=== PATIENT | male | born 1965 | race Caucasian/White ===

== ENCOUNTER → 2017-05-27 | Day surgery (SDC) | payer BC ==
[~2017-05-27] MED LIST: ASPIR 8181 MG PO; ATORVASTATIN CA10 MG PO; CEFTIN500 MG PO; CONCERTA54 MG PO; DOK100 MG PO; ENDUR-ACIN500 MG PO; FENTANYL CITRATE/PF 100MCG/2 ML INJ ONE; FLOMAX0.4 MG PO; GLIMEPIRIDE2 MG PO; IOPAMIDOL 370 MG/ML 200 ML INFUS..BTL INJ ONE; LANSOPRAZOLE15 MG PO; LIDOCAINE HCL 2% LOCAL INJ 5 ML SDV VIAL INJ ONE; LISINOPRIL2.5 MG PO; LYRICA75 MG PO; METFORMIN HCL500 MG PO; METOCLOPRAMIDE HCL 10 MG/2ML VIAL ONE; MIDAZOLAM HCL 2 MG/2 ML VIAL ONE; PANTOPRAZOLE SO40 MG PO; PROPOFOL IV EMULSION 10 MG/ML 50 ML VIAL ONE; PROTONIX40 MG/ML PO; ROPINIROLE HC0.25 MG PO; SENNA LAX8.6 MG PO; SODIUM CHLORIDE 0.9% 250ML 250 ML ONE; SODIUM CHLORIDE 0.9% 500ML 500 ML ONE; SODIUM CHLORIDE 0.9% 50ML 50 ML ONE; TRULICITY; TRULICITY SC; TYLENOL # 31 EA PO; ULTRAM 50MG50 MG PO
--- NOTE | 2017-05-27 10:32 | Operative Report ---
DATE OF PROCEDURE: May 27, 2017 REFERRING PHYSICIAN: Dr. Catrachito Ashley PROCEDURE PERFORMED: Esophagogastroduodenoscopy with biopsies. INDICATIONS FOR EGD: Acid reflux. MEDICATION: Patient was done under MAC. Please see anesthesiologist's note. PROCEDURE: With the patient in the left lateral decubitus position, the flexible fiberoptic Olympus gastroscope was introduced into the esophagus under direct visualization without any difficulty. There was some patchy erythema noted in the distal esophagus. The scope was then advanced with ease into the stomach. A large amount of retained undigested food was noted in the stomach precluding visualization of the fundus and the proximal two-thirds of the body. Mucosa overlying the distal body and antrum revealed some diffuse erythema and low-grade edema, and biopsies were obtained and sent to stain for H. pylori. The pylorus was intubated with ease. The scope was advanced all the way to the 2nd portion of the duodenum. The scope was then withdrawn slowly. Mucosa overlying the proximal 2nd portion and the duodenal bulb appeared to be within normal limits. The scope was then withdrawn back into the stomach and retroflexed. The fundus and the proximal two-thirds of the body could not be visualized due to the retained undigested food. The scope was then straightened out. The stomach was decompressed. The scope was subsequently withdrawn. Patient tolerated the procedure well. IMPRESSION 1. Distal esophagitis, mild. 2. Gastritis, antrum, biopsied. Biopsies sent to stain for Helicobacter pylori. 3. Large amount of retained undigested food precluding visualization of fundus and proximal two-thirds of the body of the stomach reflecting gastroparesis. PLAN: Follow up histology. Continue Protonix 40 mg 1 p.o. q.a.m. a.c. Add Reglan 10 mg 1 p.o. a.c. t.i.d. and at bedtime. Job#: [id number] RI cc:CATRACHITO ASHLEY MD
== END | disposition home or self-care (01) ==
LOC: OR 06:45
PROVIDERS: ATTEND Internal Medicine Gastroenterology
DX: K21.9 Gastro-esophageal reflux disease without esophagitis (principal); K29.70 Gastritis, unspecified, without bleeding; K31.84 Gastroparesis; K20.9 Esophagitis, unspecified; G47.33 Obstructive sleep apnea (adult) (pediatric); I10 Essential (primary) hypertension; E11.9 Type 2 diabetes mellitus without complications; Z01.810 Encounter for preprocedural cardiovascular examination
CPT/HCPCS: 36415; 43239; 82948; 93005; J2001; J2250; J2765

== ENCOUNTER 2017-08-17 22:53 | Observation (INO) | payer BC ==
[~2017-08-17] VITALS: Ht 182.9 cm; Wt 113.9 kg
[~2017-08-17 22:53] MED LIST changes: -FENTANYL CITRATE/PF 100MCG/2 ML INJ ONE; -IOPAMIDOL 370 MG/ML 200 ML INFUS..BTL INJ ONE; -LIDOCAINE HCL 2% LOCAL INJ 5 ML SDV VIAL INJ ONE; -METOCLOPRAMIDE HCL 10 MG/2ML VIAL ONE; -MIDAZOLAM HCL 2 MG/2 ML VIAL ONE; -PROPOFOL IV EMULSION 10 MG/ML 50 ML VIAL ONE; -SODIUM CHLORIDE 0.9% 250ML 250 ML ONE; -SODIUM CHLORIDE 0.9% 500ML 500 ML ONE; -SODIUM CHLORIDE 0.9% 50ML 50 ML ONE
[2017-08-18] VITALS (7 sets, daily range): BP systolic 102–131; BP diastolic 59–82
--- OUTSIDE RECORDS SUMMARY | 2017-08-18 00:16 | XMS REPORT ---
Author Author [facility] Address Unknown Phone Unavailable Care Team Providers Care Fine Arts Model Name Role Phone NEMO MOLINA Unavailable Unavailable Problems This patient has no known problems. Allergies, Adverse Reactions, Alerts This patient has no known allergies or adverse reactions. Medications This patient has no known medications. Results Test Description Test Time Test Comments Text Results Atomic Results Result Comments CT ABDOMEN/PELVIS W [place] [address] Patient Name: KRYSTEN VELIZ MR #: [id number] : 1965 Age/Sex: 51/M Req #: [id number] Adm Physician: Ordered by: NEMO MOLINA MD Report #: [id number] Location: CT Room/Bed: Procedure: [id number] CT/CT ABDOMEN/PELVIS W Exam Date: 05/30/17 Exam Time : 1752 REPORT STATUS: Signed PROCEDURE: CT ABDOMEN AND PELVIS WITH CONTRAST TECHNIQUE: The abdomen and pelvis were scanned utilizing a multidetector helical scanner from the diaphragm to the lesser trochanter after the IV administration of 70 cc of Isovue 370 and the oral administration of water. Coronal and sagittal multiplanar reformations were obtained. COMPARISON: [facility], CT, CT ABDOMEN/PELVIS WOW, 09/27/2016, 9:02. INDICATIONS: KIDNEY CANCER. Status post left nephrectomy FINDINGS: LOWER THORAX: Lung bases are clear. No pulmonary nodules. HEPATOBILIARY: No focal hepatic lesions. No biliary ductal dilatation. Cholecystectomy clips. SPLEEN: Stable mild splenomegaly, measuring 14 cm in AP diameter. Stable 1.4 cm splenule PANCREAS: No focal masses or ductal dilatation. ADRENALS: No adrenal nodules. KIDNEYS/ URETERS: Postoperative changes of left nephrectomy, without enhancing soft tissue density in the left renal fossa. Normal enhancement of the right kidney , without stones, hydronephrosis or solid, enhancing masses. PELVIC ORGANS/ BLADDER: The bladder is unremarkable, without focal lesions. Prostate is unremarkable. PERITONEUM / RETROPERITONEUM: No free air or fluid. LYMPH NODES: No intra-abdominal, retroperitoneal, pelvic, or inguinal adenopathy. VESSELS: Celiac trunk, superior and inferior mesenteric, and right renal arteries are patent. Portal, superior mesenteric, and splenic veins are patent. GI TRACT: No bowel dilation or evidence of obstruction. No pericolonic inflammatory changes. BONES AND SOFT TISSUES: No acute bony abnormalities. No lytic or blastic lesions. Soft tissues are grossly unremarkable except for stable tiny fat containing umbilical hernia. IMPRESSION: 1. status post left nephrectomy for RCC, without evidence of residual or recurrent disease. No local adenopathy or distant metastatic disease in the visualized lungs, abdomen, or pelvis. Graeme Lennon M.D. Dictated by: Graeme Lennon M.D. on 05/30/2017 at 19:16 Electronically approved by: Graeme Lennon M.D. on 05/30/2017 at 19:16 Dictated By: GRAEME LENNON MD 15 Transcribed By: AMY on 05/30/171915 COPY TO: NEMO MOLINA MD CHEST 2 VIEWS [place] [address] Patient Name: KRYSTEN VELIZ MR #: [id number] : 1965 Age/Sex: 51/M Req #: [id number] Adm Physician: Ordered by: NEMO MOLINA MD Report #: [id number] Location: [facility] Room/Bed: Procedure: [id number] DX/CHEST 2 VIEWS Exam Date: 03/20/17 Exam Time: 1700 REPORT STATUS: Signed PROCEDURE: X-RAY CHEST, TWO VIEWS COMPARISON: 10/05/16. INDICATIONS: KIDNEY CANCER FINDINGS: LUNGS: No consolidations or edema. PLEURA: No effusions or pneumothorax. HEART T MEDIASTINUM: The heart is within normal size-limits. BONES T SOFT TISSUES: No acute findings. Upper abdominal surgical clips. CONCLUSION: No acute cardiopulmonary abnormality. Dictated by: Rey Ramírez M.D. on 03/20/2017 at 17:26 Electronically approved by: Rey Ramírez M.D. on 03/20/2017 at 17:26 Dictated By: REY RAMÍREZ MD 25 Transcribed By: AMY on 03/20/171725 COPY TO: NEMO MOLINA MD
[2017-08-18] MEDS ORDERED: ONDANSETRON HCL INJ 2 MG/ML VIAL IV PRN (01:30)
[2017-08-18] MEDS ORDERED: ACETAMINOPHEN 325 MG TAB PO PRN (01:30)
[2017-08-18] MEDS ORDERED: ASPIRIN 325 MG TAB PO ONE (01:30)
[2017-08-18 01:53] LABS: BASOPHILS # (AUTO) 0.1 (0.0-0.1); BASOPHILS % 0.6 % (0.0-1.0); EOSINOPHILS # (AUTO) 0.2 (0.0-0.4); EOSINOPHILS % 2.3 % (0.0-6.0); HEMATOCRIT 36.5 % (38.2-49.6); HEMOGLOBIN 12.7 g/dL (14.0-18.0); LYMPHOCYTES # (AUTO) 3.2 (1.0-3.2); LYMPHOCYTES % 38.4 % (18.0-39.1); MEAN CORPUSCULAR HEMOGLOBIN 29.8 pg (28-32); MEAN CORPUSCULAR HGB CONC 34.8 g/dL (31-35); MEAN CORPUSCULAR VOLUME 85.7 fL (81-99); MONOCYTES # (AUTO) 0.5 (0.2-0.8); MONOCYTES % 6.5 % (4.4-11.3); NEUTROPHILS # (AUTO) 4.3 (2.1-6.9); PLATELET COUNT 159 x10e3/uL (140-360); RED BLOOD COUNT 4.26 x10e6/uL (4.3-5.7); RED CELL DISTRIBUTION WIDTH 13.5 % (11.7-14.4)
[2017-08-18 02:13] LABS: ALBUMIN 3.7 g/dL (3.5-5.0); ALBUMIN/GLOBULIN RATIO 1.1 (0.8-2.0); ANION GAP 15.9 mmol/L (8-16); CALCIUM 8.6 mg/dL (8.4-10.2); CHOL/HDL RATIO 3.3 (3.9-4.7); CREATININE, SERUM 1.37 mg/dL (0.72-1.25); POTASSIUM 3.9 mmol/L (3.5-5.1)
[2017-08-18] MEDS ORDERED: PNEUMOCOCCAL VACCINE POLYVALENT 23 MCG/0.5 ML VIAL IM ONE (02:15)
--- NOTE | 2017-08-18 02:32 | Diagnostic Imaging Report ---
CHEST SINGLE (PORTABLE), 08/18/2017 1:30 AM Technique: CHEST SINGLE (PORTABLE) Comparison: 03/20/2017 Clinical history: Chest pain Findings: Unremarkable portable appearance of the heart, mediastinum, lungs and pleural spaces. Impression: 1. Lines/Tubes: None 2. No acute abnormality. Signed by: Dr Janeen Dowd MD on 08/18/2017 2:28 AM
[2017-08-18 02:33] LABS: THYROID STIMULATING HORMONE 2.957 uIU/mL (0.350-4.940)
[2017-08-18 07:29] LABS: BASOPHILS # (AUTO) 0.1 (0.0-0.1); BASOPHILS % 0.8 % (0.0-1.0); EOSINOPHILS # (AUTO) 0.2 (0.0-0.4); EOSINOPHILS % 2.7 % (0.0-6.0); HEMATOCRIT 37.8 % (38.2-49.6); HEMOGLOBIN 13.1 g/dL (14.0-18.0); LYMPHOCYTES # (AUTO) 2.3 (1.0-3.2); LYMPHOCYTES % 35.2 % (18.0-39.1); MEAN CORPUSCULAR HEMOGLOBIN 29.8 pg (28-32); MEAN CORPUSCULAR HGB CONC 34.7 g/dL (31-35); MEAN CORPUSCULAR VOLUME 86.1 fL (81-99); MONOCYTES # (AUTO) 0.5 (0.2-0.8); MONOCYTES % 7.8 % (4.4-11.3); NEUTROPHILS # (AUTO) 3.5 (2.1-6.9); NEUTROPHILS % 53.2 % (38.7-80.0); PLATELET COUNT 162 x10e3/uL (140-360); RED BLOOD COUNT 4.39 x10e6/uL (4.3-5.7); RED CELL DISTRIBUTION WIDTH 13.3 % (11.7-14.4)
[2017-08-18 07:40] LABS: ALBUMIN 3.7 g/dL (3.5-5.0); ALBUMIN/GLOBULIN RATIO 1.1 (0.8-2.0); ANION GAP 16.8 mmol/L (8-16); CALCIUM 8.4 mg/dL (8.4-10.2); CHOL/HDL RATIO 3.4 (3.9-4.7); CREATININE, SERUM 1.29 mg/dL (0.72-1.25); POTASSIUM 3.8 mmol/L (3.5-5.1)
[2017-08-18] MEDS ORDERED: ASPIRIN 325 MG TAB PO SCH (09:00)
[2017-08-18] MEDS ORDERED: SODIUM CHLORIDE 0.9% 1000ML 1,000 ML IV SCH (09:15)
[2017-08-18] MEDS ORDERED: DEXTROSE 50% SYRINGE 50 ML IV PRN (09:15)
--- NOTE | 2017-08-18 10:07 | History and Physical ---
PRIMARY CARE PHYSICIAN: Dr. Ashley CHIEF COMPLAINT: Chest pain. HISTORY OF PRESENT ILLNESS: This is a 52-year-old man with a history of renal mass and now developing chest discomfort. He went to with complaints of chest pain. There he was sent here for further evaluation and management. Currently, the patient has no chest pain. Cardiac enzymes here 1st one is negative. He is admitted for further evaluation and management. He had chest pain in the substernal region without any radiation described as pressure. PAST MEDICAL HISTORY: Diabetes mellitus, type 2, hypertension, acute pancreatitis, left renal mass, status post left nephrectomy, constipation, urinary tract infection. PAST SURGICAL HISTORY: Cholecystectomy in 1994, shoulder surgery in 2003, tonsillectomy at age 7. ALLERGIES: OXYCODONE. FAMILY HISTORY: Diabetes mellitus, hypertension and heart disease. SOCIAL HISTORY: The patient is . He has 7 children. No alcohol, illicits or cigarettes. Works in [employer]. REVIEW OF SYSTEMS: Denies any fever, chills or sweats. PHYSICAL EXAMINATION VITAL SIGNS: Have been reviewed. GENERAL: A tired-appearing man resting in bed. HEENT: Anicteric. Pupils respond to light. No oral lesions. CARDIOVASCULAR: Normal S1 and S2. LUNGS: Moderate breath sounds. ABDOMEN: Soft, nontender and nondistended. EXTREMITIES: No edema or calf tenderness. NEUROLOGICAL: Alert and oriented times 3. Moving all extremities. SKIN: Dry. PSYCHIATRIC: Normal affect. LABS: Reviewed. MEDICATIONS: Reviewed. ASSESSMENT AND PLAN: This is a 52-year-old man with: 1. Chest pain: Symptoms have resolved. He does have a history of diabetes. Last echocardiogram about 2 years ago he states. No stress test in the past. Will consult cardiology. Obtain 2-D echocardiogram. Trend cardiac enzymes. 2. Hypertension/hyperlipidemia: Continue home medication regimen. 3. Diabetes mellitus, type 2: Obtain hemoglobin A1c and lipid panel. 4. Normocytic anemia, mild: Will follow. 5. Acute kidney injury: Will rehydrate the patient and follow. 6. Obesity/diabetes mellitus, type 2: Body mass index is 34. Caloric restriction needed. Hemoglobin A1c and lipid panel. 7. Will use Lovenox and Pepcid prophylactically. 8. Disposition: Echocardiogram. Cardiology consultation. Job#: [id number] SD
[2017-08-18 11:08] LABS: CREATINE KINASE 42 IU/L (30-200)
[2017-08-18] MEDS: INSULIN REGULAR, HUMAN 100 UNIT/1 ML 3ML VIAL SQ SCH ×2 (11:30→17:24)
--- NOTE | 2017-08-18 16:08 | Consultation ---
DATE OF CONSULTATION: August 18, 2017 CARDIOLOGY CONSULTATION REQUESTING PHYSICIAN: Dr. rFancisco Jaeger. REASON FOR CONSULTATION: Chest pain. HISTORY OF PRESENT ILLNESS: This is a 52-year-old male with a history of diabetes mellitus and renal cell carcinoma status post nephrectomy, who presented with complaints of chest pain. He reports he has been having chest pain for a few days. He described it as initially a light chest pain that occurred off and on; however, yesterday, it lasted all day. He described it as a sharp pressure sensation that was 3/10 in severity without shortness of breath, nausea, or diaphoresis. The pain however did radiate up to his neck. He also noted dyspnea on exertion walking 8 blocks yesterday which is not his normal. He otherwise denies edema, orthopnea, or PND. REVIEW OF SYSTEMS: Negative, except as per HPI. PAST MEDICAL HISTORY: Diabetes mellitus, renal cell carcinoma status post nephrectomy. PAST SURGICAL HISTORY: Cholecystectomy, tonsillectomy, rotator cuff surgery, and nephrectomy. ALLERGIES: Please see EMR. MEDICATIONS: Please see medication list. SOCIAL HISTORY: He denies tobacco, alcohol, or illicit drugs. FAMILY HISTORY: Pertinent for father with heart disease and status post stenting, cardiac medications. PHYSICAL EXAMINATION VITAL SIGNS: Temperature 98 degrees, pulse 92, respiratory rate 18, blood pressure 130/82, and oxygen saturation 98%. GENERAL: Awake and alert, in no acute distress, well developed, well nourished. HEENT: Normocephalic and atraumatic. Pupils are equal. No scleral icterus. NECK: Supple. No thyromegaly or cervical lymphadenopathy. No carotid bruits. LUNGS: Clear to auscultation bilaterally. No wheezes or crackles. CARDIOVASCULAR: Normal rate, regular rhythm. No murmur. Normal S1, S2. ABDOMEN: Soft and nontender. EXTREMITIES: No edema. NEURO: Nonfocal exam. Enoxaparin 40 mg subcu daily, aspirin 325 mg p.o. daily. LABS: WBC 6.5, hemoglobin 13.1, hematocrit 37.8, and platelets 162. Sodium 138, potassium 3.8, chloride 107, CO2 18, BUN 23, and creatinine 1.29. EKG: Normal sinus rhythm with leftward axis. Low-voltage QRS in precordial leads. IMPRESSION 1. Chest pain. 2. Diabetes mellitus. 3. Renal cell carcinoma status post nephrectomy. 4. Hypertension. 5. Hyperlipidemia. RECOMMENDATIONS: The patient has not had any evidence of myocardial infarction. Given risk factors, we will plan for nuclear stress test today. Echocardiogram does show low normal systolic function. Otherwise no major valvular abnormalities. Thank you for this consult. We will continue to follow. Job#: [id number] SAK
[2017-08-18] MEDS ORDERED: FAMOTIDINE 20 MG TAB PO SCH (16:30)
[2017-08-18] MEDS ORDERED: ENOXAPARIN SOD INJ 40 MG/0.4 ML SYR SC SCH (17:00)
--- NOTE | 2017-08-18 17:21 | Cardiology Report ---
DATE OF STUDY: August 18, 2017 NUCLEAR STRESS TEST PROCEDURE PERFORMED: Rest/stress single isotope SPECT imaging with exercise stress and gated SPECT imaging. INDICATIONS: Chest pain. PROCEDURE: The patient performed treadmill exercise using a Sukumar protocol, exercising for 6 minutes 11 seconds to stage 2 and completing estimated workload of 7 metabolic equivalents (METs). The test was terminated due to fatigue. The heart rate was 109 beats per minute and increased to 145 beat per minute, which was 86% of the maximum predicted heart rate. The rest blood pressure was 113/70 and increased to 143/71 mmHg, which is a normal response. The patient did not develop any symptoms other than fatigue during the procedure. Resting ECG demonstrated normal sinus rhythm. There were no ST-segment changes consistent with myocardial infarction. Myocardial perfusion imaging was performed at rest following the injection of 11 millicuries of tetrofosmin. At peak exercise, the patient was injected with 33 millicuries of tetrofosmin, and exercise was continued for 1 minute. Gated poststress tomographic imaging was performed. FINDINGS: The overall quality of the study is fair. Attenuation artefact is present. Left ventricular cavity is noted to be normal on the rest and stress studies. SPECT images demonstrate a small mild inferior perfusion defect on rest and stress. Gated SPECT imaging reveals normal myocardial thickening and wall motion. The left ventricular ejection fraction was calculated to be 58%. IMPRESSION: Normal clinical hemodynamic and ECG exercise stress test. Myocardial perfusion imaging is normal. However, a small mild attenuation artefact was noted on the inferior wall. The overall left ventricular systolic function was normal without regional wall motion abnormalities. Job#: [id number] EV
== END 2017-08-18 18:00 | disposition home or self-care (01) ==
LOC: IMCU 08-18 00:13
PROVIDERS: ADMIT Internal Medicine; ATTEND Internal Medicine
DX: R07.9 Chest pain, unspecified (principal); E11.9 Type 2 diabetes mellitus without complications; I10 Essential (primary) hypertension; Z90.5 Acquired absence of kidney; E78.5 Hyperlipidemia, unspecified; D64.9 Anemia, unspecified; E66.9 Obesity, unspecified; Z68.34 Body mass index [BMI] 34.0-34.9, adult; Z85.528 Personal history of other malignant neoplasm of kidney
CPT/HCPCS: 36415; 71045; 78452; 80053; 80061; 82550; 82553; 82948; 83036; 84443; 84484; 85025; 90732; 93005; 93017; 93306; A9502; G0378; J7030

== ENCOUNTER → 2017-12-14 | Outpatient (CLI) | payer BC ==
[~2017-12-14] MED LIST changes: +IOPAMIDOL 370 MG/ML 200 ML INFUS..BTL INJ ONE; +SODIUM CHLORIDE 0.9% 50ML 50 ML ONE
--- NOTE | 2017-12-14 17:00 | Diagnostic Imaging Report ---
PROCEDURE: Frontal and lateral views of the chest. COMPARISON: 08/18/17 INDICATIONS: follow up kidney cancer FINDINGS: Lines/tubes: None. Lungs: The lungs are well inflated and clear. There is no evidence of pneumonia or pulmonary edema. Pleura: There is no pleural effusion or pneumothorax. Heart and mediastinum: The heart and the mediastinum are normal. Bones: No acute bony abnormality. IMPRESSION: 1. No acute cardiopulmonary disease. Dictated by: Ward Curtis M.D. on 12/14/2017 at 17:04 Electronically approved by: Ward Curtis M.D. on 12/14/2017 at 17:04
--- NOTE | 2017-12-14 17:39 | Diagnostic Imaging Report ---
EXAM: CT Abdomen and Pelvis WITH contrast INDICATION: History of renal cancer. \[id number] \S\[id number] COMPARISON: CT dated 05/30/2017 TECHNIQUE: Abdomen and pelvis were scanned utilizing a multidetector helical scanner from the lung base to the pubic symphysis after administration of IV contrast. Coronal and sagittal reformations were obtained. Routine protocol was performed. Scan was performed when during portal venous phase. IV CONTRAST: 100 mL of Isovue-370 ORAL CONTRAST: Water COMPLICATIONS: None RADIATION DOSE: Total DLP: 870.29 mGy*cm Estimated effective dose: (DLP x 0.015 x size factor) mSv CTDIvol has been reviewed. It is below the limits set by the Radiation Protocol Committee (RPC). FINDINGS: LINES and TUBES: None. LOWER THORAX: Unremarkable HEPATOBILIARY: No focal hepatic lesions. No biliary ductal dilation. GALLBLADDER: Surgically absent. SPLEEN: No splenomegaly. PANCREAS: No focal masses or ductal dilatation. ADRENALS: No adrenal nodules KIDNEYS/URETERS: Left nephrectomy. Right kidney is unremarkable. No right renal mass. No hydronephrosis or renal stone. GI TRACT: No abnormal distention, wall thickening, or evidence of bowel obstruction. Appendix is normal. PELVIC ORGANS/BLADDER: Unremarkable. LYMPH NODES: No lymphadenopathy. VESSELS: There is mild atherosclerotic disease in the aorta and major arterial branches. PERITONEUM / RETROPERITONEUM: No free air or fluid. BONES: Unremarkable. SOFT TISSUES: Unremarkable. IMPRESSION: 1. Left nephrectomy. No evidence of recurrent disease. 2. No metastatic disease in the abdomen/pelvis. Signed by: Dr. Ward Curtis MD on 12/14/2017 5:35 PM
== END ==
LOC: CT 15:58
PROVIDERS: ATTEND Urology
DX: C64.2 Malignant neoplasm of left kidney, except renal pelvis (principal)
CPT/HCPCS: 71046; 74177; Q9967

== ENCOUNTER → 2018-06-23 | Day surgery (SDC) | payer BC ==
[~2018-06-23] MED LIST changes: +ASPIR 8181 MG; +FENTANYL CITRATE/PF 100MCG/2 ML INJ ONE; +GLIMEPERIDE; +GLUCAGON FOR INJ 1 MG VIAL ONE; +HYOSCYAMINE SULFATE 0.5 MG/ML INJ ONE; +INSULIN PUMP; -IOPAMIDOL 370 MG/ML 200 ML INFUS..BTL INJ ONE; +METHYPHENIDATE; +MIDAZOLAM HCL 5 MG/ML VIAL ONE; +PIOGLITAZONE; +PROPOFOL IV EMULSION 10 MG/ML 50 ML VIAL ONE; +REGLAN10 MG; -SODIUM CHLORIDE 0.9% 50ML 50 ML ONE
[2018-06-23 09:23] VITALS: BP 127/92
--- NOTE | 2018-06-23 13:04 | Operative Report ---
DATE OF PROCEDURE: June 23, 2018 REFERRING PHYSICIAN: Dr. Catrachito Ashley. PROCEDURES PERFORMED 1. Esophagogastroduodenoscopy with biopsies. 2. Colonoscopy with polypectomy. INDICATIONS FOR EGD: Aid acid reflux, large amount of retained foot in stomach on previous EGD. INDICATIONS FOR COLONOSCOPY: Colorectal cancer screening. MEDICATION: Patient was done under MAC. Please see anesthesiologist's note. PROCEDURE: With the patient in left lateral decubitus position, the flexible fiberoptic Olympus gastroscope was introduced into the esophagus under direct visualization without any difficulty. The esophagus appeared to be within normal limits. The scope was then advanced with ease into the stomach. Mucosa overlying the antrum revealed some patchy erythema and low-grade to moderate edema and biopsies were obtained, sent to stain for H. pylori. Several hyperplastic-appearing polyps were noted in the body of the stomach as well as the fundus and some were partially excised with a cold biopsy forceps. The pylorus was of normal contour and shape. It was intubated with ease and the scope was advanced all the way to the 2nd portion of the duodenum. The scope was then withdrawn slowly. Mucosa overlying the proximal 2nd portion and the duodenal bulb appeared to be within normal limits. The scope was then withdrawn back into the stomach and retroflexed. Mucosa overlying the fundus and the cardia appeared to be within normal limits. The scope was then straightened out and was subsequently withdrawn. Patient tolerated the procedure well. IMPRESSION 1. Normal esophagus. 2. Gastritis, biopsied. Biopsies sent to stain for Helicobacter pylori. 3. Gastric polyps, body, some partially excised with cold biopsy forceps. PLAN: Follow up histology. Initiate Protonix 40 mg 1 p.o. q.a.m. a.c. Patient was then turned around and after adequate lubrication of the anal canal, a flexible fiberoptic Olympus colonoscope was inserted into the rectum with ease and advanced all the way to the cecum. The mucosa overlying the cecum appeared to be within normal limits. The scope was then withdrawn slowly. One polyp was hot biopsied from the ascending colon. One polyp was snared from the transverse colon. Two polyps were hot biopsied from the descending colon. Two polyps were hot biopsied from the sigmoid colon. Two polyps were hot biopsied from the rectum. The scope was then retroflexed into the distal rectum and small internal hemorrhoids were noted, none of which was actively bleeding. The scope was then straightened out and was subsequently withdrawn. Patient tolerated the procedure well. IMPRESSION 1. Ascending colon polyp, hot biopsied. 2. Transverse colon polyp, hot snared. 3. Descending colon polyps x2, hot biopsied. 4. Sigmoid colon polyps x2, hot biopsied. 5. Rectal polyp x2, hot biopsied. 6. Internal hemorrhoids, none actively bleeding. PLAN: Follow up histology. Initiate high-fiber low-fat diet. Initiate high-fiber supplement. Patient might benefit from a followup colonoscopy in 3 years. Job#: [id number] AKU cc:CATRACHITO ASHLEY MD
== END | disposition home or self-care (01) ==
LOC: OR 05:55
PROVIDERS: ATTEND Internal Medicine Gastroenterology
DX: K31.84 Gastroparesis (principal); D12.5 Benign neoplasm of sigmoid colon; K31.7 Polyp of stomach and duodenum; K29.70 Gastritis, unspecified, without bleeding; K55.20 Angiodysplasia of colon without hemorrhage; Q27.33 Arteriovenous malformation of digestive system vessel; K21.9 Gastro-esophageal reflux disease without esophagitis; K64.8 Other hemorrhoids; I10 Essential (primary) hypertension; E11.9 Type 2 diabetes mellitus without complications; F98.8 Other specified behavioral and emotional disorders with onset usually occurring in childhood and adolescence; Z79.82 Long term (current) use of aspirin; Z01.810 Encounter for preprocedural cardiovascular examination; Z79.84 Long term (current) use of oral hypoglycemic drugs; Z85.528 Personal history of other malignant neoplasm of kidney
CPT/HCPCS: 36415; 43239; 45384; 45385; 82948; 93005; J1610; J1980; J2250

== ENCOUNTER → 2018-06-28 | Outpatient (CLI) | payer BC ==
[~2018-06-28] MED LIST changes: -FENTANYL CITRATE/PF 100MCG/2 ML INJ ONE; -GLUCAGON FOR INJ 1 MG VIAL ONE; -HYOSCYAMINE SULFATE 0.5 MG/ML INJ ONE; +IOPAMIDOL 370 MG/ML 200 ML INFUS..BTL INJ ONE; -MIDAZOLAM HCL 5 MG/ML VIAL ONE; -PROPOFOL IV EMULSION 10 MG/ML 50 ML VIAL ONE; +SODIUM CHLORIDE 0.9% 250ML 500 ML ONE
[2018-06-28 17:34] LABS: CREATININE, SERUM 1.36 mg/dL (0.72-1.25)
--- NOTE | 2018-06-28 18:12 | Diagnostic Imaging Report ---
EXAMINATION: CHEST 2 VIEWS INDICATION: ^KIDNEY CA COMPARISON: Chest x-ray 08/18/2017. FINDINGS: PA and lateral views TUBES and LINES: None. LUNGS: Lungs are well inflated. Lungs are clear. There is no evidence of pneumonia or pulmonary edema. PLEURA: No pleural effusion or pneumothorax. HEART AND MEDIASTINUM: The cardiomediastinal silhouette is unremarkable. BONES AND SOFT TISSUES: No acute osseous lesion. Soft tissues are unremarkable. UPPER ABDOMEN: No free air under the diaphragm. IMPRESSION: No acute thoracic abnormality. Signed by: Dr. Kehinde Erickson M.D. on 06/28/2018 6:09 PM
--- NOTE | 2018-06-28 19:39 | Diagnostic Imaging Report ---
EXAM: CT Abdomen and Pelvis WITH contrast INDICATION: ^KIDNEY CANCER, LEFT COMPARISON: CT abdomen and pelvis 12/14/2017. TECHNIQUE: Abdomen and pelvis were scanned utilizing a multidetector helical scanner from the lung base to the pubic symphysis after administration of IV contrast. Coronal and sagittal reformations were obtained. Routine protocol was performed. Scan was performed when during portal venous phase. IV CONTRAST: 100 mL of Isovue 370 ORAL CONTRAST: Water COMPLICATIONS: None. Creatinine 1.36. GFR 55. Hydration protocol. RADIATION DOSE: Total DLP: 765.56 mGy*cm Estimated effective dose: (DLP x 0.015 x size factor) mSv CTDIvol has been reviewed. It is below the limits set by the Radiation Protocol Committee (RPC). FINDINGS: LINES and TUBES: None. LOWER THORAX: Unremarkable HEPATOBILIARY: No focal hepatic lesions. No biliary ductal dilation. GALLBLADDER: Surgically absent SPLEEN: No splenomegaly. PANCREAS: No focal masses or ductal dilatation. ADRENALS: No adrenal nodules KIDNEYS/URETERS: Left nephrectomy. Right kidney is unremarkable. No right renal mass. No hydronephrosis or renal stone. GI TRACT: No abnormal distention, wall thickening, or evidence of bowel obstruction. Appendix is not visualized. PELVIC ORGANS/BLADDER: Unremarkable. LYMPH NODES: No lymphadenopathy. VESSELS: There is mild atherosclerotic disease in the aorta and major arterial branches. PERITONEUM / RETROPERITONEUM: No free air or fluid. BONES: Unremarkable. SOFT TISSUES: Unremarkable. IMPRESSION: 1. Left nephrectomy. No evidence of recurrent disease. 2. No metastatic disease in the abdomen/pelvis. Signed by: Dr. Kehinde Erickson M.D. on 06/28/2018 7:36 PM
== END ==
LOC: CT 15:59
PROVIDERS: ATTEND Urology
DX: C64.2 Malignant neoplasm of left kidney, except renal pelvis (principal)
CPT/HCPCS: 36415; 71046; 74177; 82565; 84520; 96360; J7050; Q9967

== ENCOUNTER → 2019-03-05 | Outpatient (CLI) | payer BC ==
[~2019-03-05] MED LIST changes: -SODIUM CHLORIDE 0.9% 250ML 500 ML ONE; +SODIUM CHLORIDE 0.9% 50ML 50 ML ONE
--- NOTE | 2019-03-05 16:41 | Diagnostic Imaging Report ---
EXAM: CHEST 2 VIEWS DATE: 03/05/2019 4:30 PM INDICATION: History of neoplasm of left kidney COMPARISON: 06/28/2018 FINDINGS: The trachea is midline. The lungs are symmetrically expanded without evidence for large focal consolidation, pneumothorax, or significant pleural effusion. The cardiomediastinal silhouette and pulmonary vasculature are within normal limits. No acute osseous abnormality is identified. The surrounding soft tissues are unremarkable. IMPRESSION: No acute cardiopulmonary process identified. Signed by: Dr. Wilbert Franklin MD on 03/05/2019 4:38 PM
--- NOTE | 2019-03-05 17:40 | Diagnostic Imaging Report ---
CT of the abdomen and pelvis, with contrast. History: Left kidney cancer.. Comparison: 06/28/2018. Technique: Multidetector CT scanning of the abdomen and pelvis was performed from the level of the lung bases to the inferior pubic rami after the administration of intravenous contrast material only. Coronal and sagittal multiplanar reformations were obtained. RADIATION DOSE: Total DLP: 786.30 mGy*cm Dose modulation, iterative reconstruction, and/or weight based adjustment of the mA/kV was utilized to reduce the radiation dose to as low as reasonably achievable. FINDINGS: The lung bases are clear. The imaged portion of the heart demonstrates no significant abnormalities. The liver is normal in size. No focal hepatic abnormality is identified. The gallbladder surgically is absent. There is no biliary ductal dilatation. The stomach, pancreas, spleen, and right adrenal gland are unremarkable. The left adrenal gland is not well appreciated and may be surgically absent, unchanged. Incidentally noted is a splenule adjacent to the spleen. The left kidney surgically absent. No abnormality is identified within the left renal fossa. The right kidney is normal in size and location and concentrates contrast material properly. There is no evidence for hydronephrosis. The right ureter is normal in course and caliber. The urinary bladder and prostate demonstrate no significant abnormalities. The abdominal aorta is normal course and caliber with minimal atherosclerotic calcifications. The IVC is unremarkable. Please note evaluation the bowel is limited without the use of enteric contrast material. The visualized loops of small and large bowel demonstrate no evidence of obstruction or inflammation. There is no ascites or intraperitoneal free air. No abnormally enlarged lymph nodes are identified within the abdomen or pelvis. The osseous structures demonstrate no evidence for acute fracture or destructive process. The extra perineal soft tissues are unremarkable. IMPRESSION: Status post left nephrectomy. No evidence for recurrent disease or metastatic disease within the abdomen/pelvis. Signed by: Dr. Wilbert Franklin MD on 03/05/2019 5:36 PM
== END ==
LOC: CT 15:47
PROVIDERS: ATTEND Urology
DX: Z85.528 Personal history of other malignant neoplasm of kidney (principal); N40.1 Benign prostatic hyperplasia with lower urinary tract symptoms; R35.1 Nocturia; E11.9 Type 2 diabetes mellitus without complications; K21.9 Gastro-esophageal reflux disease without esophagitis; E78.00 Pure hypercholesterolemia, unspecified; K64.4 Residual hemorrhoidal skin tags
CPT/HCPCS: 71046; 74177; Q9967